=== PATIENT | male | born 1935 | race Caucasian/White ===

== ENCOUNTER 2018-01-25 23:32 | Inpatient (IN) | payer OTHER ==
[~2018-01-25] VITALS: Ht 172.7 cm; Wt 86.6 kg
[2018-01-26] VITALS (18 sets, daily range): BP systolic 114–156; BP diastolic 52–82
[2018-01-26] MEDS ORDERED: SODIUM CHLORIDE 0.9% 1,000 ML IV ONE ×2 (00:04→04:00)
[2018-01-26] MEDS ORDERED: PANTOPRAZOLE 40 MG/10 ML VIAL IV ONE ×2 (00:15→01:01)
[2018-01-26] MEDS ORDERED: ONDANSETRON HCL 4 MG/2 ML VIAL IV ONE (00:15)
[2018-01-26] MEDS ORDERED: NITROGLYCERIN 0.2MG/HR TOPICAL PATCH TD ONE (00:15)
[2018-01-26] MEDS ORDERED: PANTOPRAZOLE 80 MG in SODIUM CHL 0.9% 60 ML IV ONE (00:15)
[2018-01-26 00:53] LABS: Basophils # (auto) 0 uL; Basophils % (auto) 0.2 % (0.0-2.0); Hematocrit 16.4 % (41.0-53.0); Lymphocytes # (auto) 1.1 uL; Mean Corpuscular Hgb Conc. 32.7 g/dL (32.0-36.0); Monocytes # (auto) 0.6 uL; Red Blood Cells 1.68 10^6/uL (4.5-5.90); White Blood Cell 15.1 10^3/uL (4.4-10.8)
[2018-01-26 00:54] LABS: Eosinophils # (auto) 0 uL; Eosinophils % (auto) 0.3 % (0.0-7.0); Mean Corpuscular Hemoglobin 31.9 pg (28.0-32.0); Mean Corpuscular Volume 97.7 fL (80.0-100.0); Monocytes % (auto) 3.8 % (0.0-12.0); Neutrophils # (auto) 13.4 uL; Neutrophils % (auto) 88.7 % (37.0-80.0); Nucleated Red Blood Cells % 0.2 %; Platelet Count (auto) 260 10^3/uL (140-450); Red Cell Distribution Width 16.6 % (11.8-14.3)
[2018-01-26 00:57] LABS: Hemoglobin 5.4 g/dL (13.5-17.5)
[2018-01-26 01:12] LABS: Albumin 3.3 g/dL (3.4-5.0); Calcium 8.2 mg/dL (8.5-10.1); Magnesium 2.8 mg/dL (1.6-2.6); Potassium 4.1 mmol/L (3.5-5.1)
[2018-01-26 01:22] LABS: Bilirubin, Total 0.2 mg/dL (0.2-1.0); Total Protein 5.9 g/dL (6.4-8.2)
[2018-01-26 01:52] LABS: Prothrombin Time 10.9 sec (9.37-12.3)
[2018-01-26] MEDS ORDERED: NITROGLYCERIN 0.4 MG SL TAB SL ONE ×2 (03:15)
[2018-01-26] MEDS ORDERED: ONDANSETRON HCL 4 MG/2 ML VIAL IV PRN (06:00)
[2018-01-26] MEDS: ACCU-CHEK COMFORT CURVE STRIP VI SCH ×4 (06:00→23:45)
[2018-01-26] MEDS: InsuLIN REG 1unit/0.01ml Soln (100units/ml) SC SCH ×4 (06:00→23:44)
[2018-01-26] MEDS ORDERED: ACETAMINOPHEN 500 MG TAB PO PRN (06:00)
[2018-01-26] MEDS ORDERED: DEXTROSE (50%) 50ML SYRG IV PRN (06:00)
[2018-01-26] MEDS ORDERED: HYDROcodone-ACET 5/325MG TAB PO PRN (06:00)
[2018-01-26] MEDS ORDERED: PANTOPRAZOLE 80 MG in SODIUM CHL 0.9% 60 ML IV SCH (09:30)
[2018-01-26 11:43] LABS: Basophils # (auto) 0 uL; Basophils % (auto) 0.3 % (0.0-2.0); Eosinophils # (auto) 0.1 uL; Eosinophils % (auto) 0.6 % (0.0-7.0); Hematocrit 24.4 % (41.0-53.0); Hemoglobin 8.2 g/dL (13.5-17.5); Lymphocytes % (auto) 17.9 % (10.0-50.0); Mean Corpuscular Hemoglobin 30.6 pg (28.0-32.0); Mean Corpuscular Hgb Conc. 33.4 g/dL (32.0-36.0); Mean Corpuscular Volume 91.6 fL (80.0-100.0); Monocytes # (auto) 1.6 uL; Monocytes % (auto) 9.5 % (0.0-12.0); Neutrophils # (auto) 11.9 uL; Neutrophils % (auto) 71.7 % (37.0-80.0); Nucleated Red Blood Cells % 0.4 %; Platelet Count (auto) 237 10^3/uL (140-450); Red Blood Cells 2.67 10^6/uL (4.5-5.90); Red Cell Distribution Width 17.3 % (11.8-14.3); White Blood Cell 16.5 10^3/uL (4.4-10.8)
[2018-01-26 11:55] LABS: INR 1.05 (0.9-1.15); Prothrombin Time 11.4 sec (9.37-12.3)
[2018-01-26 12:03] LABS: Albumin 3.3 g/dL (3.4-5.0); BUN/Creatinine Ratio 46.2; Bilirubin, Total 0.4 mg/dL (0.2-1.0); Calcium 8.1 mg/dL (8.5-10.1); Potassium 3.9 mmol/L (3.5-5.1); Total Protein 6.2 g/dL (6.4-8.2)
[2018-01-26 14:00] LABS: % Iron Saturation 36.9 % (20-55)
[2018-01-26] MEDS: SUCRALFATE 1 GM/10 ML ORAL SUSP PO SCH ×2 (17:00→22:09)
[2018-01-26 17:59] LABS: Hemoglobin 7.5 g/dL (13.5-17.5)
[2018-01-26 18:00] LABS: Hematocrit 22.5 % (41.0-53.0)
[2018-01-26] MEDS ORDERED: FUROSEMIDE 40 MG/4 ML VIAL IV ONE (19:45)
[2018-01-26] MEDS: CARVEDILOL 3.125 MG TAB PO SCH (22:08)
[2018-01-26] MEDS: PANTOPRAZOLE 40 MG/10 ML VIAL IV SCH (22:10)
[2018-01-27] VITALS (18 sets, daily range): BP systolic 84–153; BP diastolic 33–101
[2018-01-27 00:55] LABS: Hematocrit 20.7 % (41.0-53.0)
[2018-01-27 01:01] LABS: Hemoglobin 6.9 g/dL (13.5-17.5)
[2018-01-27] MEDS: InsuLIN REG 1unit/0.01ml Soln (100units/ml) SC SCH ×3 (06:00→17:18)
[2018-01-27] MEDS: ACCU-CHEK COMFORT CURVE STRIP VI SCH ×3 (06:25→17:19)
[2018-01-27] MEDS: SUCRALFATE 1 GM/10 ML ORAL SUSP PO SCH ×5 (07:42→22:27)
[2018-01-27] MEDS ORDERED: LOSA100T27 PO (08:05)
[2018-01-27] MEDS ORDERED: GEMF600T PO (08:05)
[2018-01-27] MEDS ORDERED: ALLO300T2 PO (08:05)
[2018-01-27] MEDS ORDERED: TERA5CAP42 PO (08:05)
[2018-01-27] MEDS ORDERED: DUTA0.5C11 PO (08:05)
[2018-01-27] MEDS ORDERED: HCTZ25T GT (08:05)
[2018-01-27] MEDS ORDERED: OMEP20CA74 OR (08:05)
[2018-01-27] MEDS ORDERED: SITA50TA PO (08:05)
[2018-01-27] MEDS ORDERED: GLIP2.5T28 PO (08:05)
[2018-01-27] MEDS ORDERED: PNEUMOCOCCAL VACC POLYS 25 MCG/0.5 ML VIAL SUBCUT ONE (08:15)
[2018-01-27 08:40] LABS: Basophils # (auto) 0.1 uL; Basophils % (auto) 0.5 % (0.0-2.0); Eosinophils # (auto) 0.4 uL; Eosinophils % (auto) 3.1 % (0.0-7.0); Hematocrit 30.6 % (41.0-53.0); Hemoglobin 10.2 g/dL (13.5-17.5); Lymphocytes # (auto) 2.3 uL; Lymphocytes % (auto) 17.3 % (10.0-50.0); Mean Corpuscular Hemoglobin 29.9 pg (28.0-32.0); Mean Corpuscular Hgb Conc. 33.2 g/dL (32.0-36.0); Monocytes # (auto) 1.1 uL; Monocytes % (auto) 8.1 % (0.0-12.0); Neutrophils # (auto) 9.4 uL; Nucleated Red Blood Cells % 0.2 %; Platelet Count (auto) 216 10^3/uL (140-450); Red Cell Distribution Width 16.3 % (11.8-14.3); White Blood Cell 13.2 10^3/uL (4.4-10.8)
[2018-01-27 09:17] LABS: Albumin 3.2 g/dL (3.4-5.0); BUN/Creatinine Ratio 34.9; Bilirubin, Total 0.5 mg/dL (0.2-1.0); Calcium 8.1 mg/dL (8.5-10.1); Potassium 3.9 mmol/L (3.5-5.1)
[2018-01-27 09:49] LABS: Folate (Folic Acid) 22.71 ng/mL (5.38-24)
[2018-01-27] MEDS: LISINOPRIL 5 MG TAB PO SCH (10:42)
[2018-01-27] MEDS: PANTOPRAZOLE 40 MG/10 ML VIAL IV SCH ×2 (10:42→22:26)
[2018-01-27] MEDS: CARVEDILOL 3.125 MG TAB PO SCH ×2 (10:43→22:28)
[2018-01-27] MEDS: SOD CHL 0.45% 1,000 ML IV SCH (10:44)
[2018-01-28] VITALS: BP 107/50
[2018-01-28] MEDS: SOD CHL 0.45% 1,000 ML IV SCH ×2 (00:50→12:39)
[2018-01-28 04:00] VITALS: BP 90/40
[2018-01-28 05:41] LABS: Urine Bacteria FEW /hpf (None Seen); Urine Blood Negative /uL (Negative); Urine Specific Gravity 1.019 (1.001-1.035); Urine WBC <1 /hpf (0 - 3)
[2018-01-28 05:45] LABS: Basophils # (auto) 0 uL; Basophils % (auto) 0.4 % (0.0-2.0); Eosinophils # (auto) 0.4 uL; Eosinophils % (auto) 3.8 % (0.0-7.0); Hematocrit 26.9 % (41.0-53.0); Lymphocytes # (auto) 2.3 uL; Lymphocytes % (auto) 21.7 % (10.0-50.0); Mean Corpuscular Hemoglobin 31.2 pg (28.0-32.0); Mean Corpuscular Hgb Conc. 33.6 g/dL (32.0-36.0); Mean Corpuscular Volume 92.9 fL (80.0-100.0); Monocytes # (auto) 1.1 uL; Monocytes % (auto) 10.3 % (0.0-12.0); Neutrophils # (auto) 6.9 uL; Neutrophils % (auto) 63.8 % (37.0-80.0); Nucleated Red Blood Cells % 0.3 %; Platelet Count (auto) 211 10^3/uL (140-450); Red Cell Distribution Width 16.6 % (11.8-14.3); White Blood Cell 10.8 10^3/uL (4.4-10.8)
[2018-01-28 05:54] LABS: Partial Thromboplastin Time 24.2 sec (22.64-33.71); Prothrombin Time 10.9 sec (9.37-12.3)
[2018-01-28] MEDS: InsuLIN REG 1unit/0.01ml Soln (100units/ml) SC SCH ×5 (05:55→21:58)
[2018-01-28] MEDS: ACCU-CHEK COMFORT CURVE STRIP VI SCH ×5 (05:55→21:58)
[2018-01-28] MEDS: SUCRALFATE 1 GM/10 ML ORAL SUSP PO SCH ×4 (06:05→21:46)
[2018-01-28 06:14] LABS: Magnesium 2.4 mg/dL (1.6-2.6); Phosphorus 3.4 mg/dL (2.5-4.90); Uric Acid 8.9 mg/dL (3.5-7.2)
[2018-01-28 06:26] LABS: BUN/Creatinine Ratio 25.1; Bilirubin, Total 0.6 mg/dL (0.2-1.0); Potassium 3.9 mmol/L (3.5-5.1); Total Protein 5.9 g/dL (6.4-8.2)
[2018-01-28 08:00] VITALS: BP 111/60
[2018-01-28] MEDS: PANTOPRAZOLE 40 MG/10 ML VIAL IV SCH ×2 (10:31→21:47)
[2018-01-28] MEDS ORDERED: MIDAZOLAM HCL 1MG/1ML-2 ML VIAL ONE (10:42)
[2018-01-28] MEDS ORDERED: fentaNYL CITRATE 100 MCG/2 ML VL ONE (10:42)
[2018-01-28] MEDS ORDERED: MORPHINE SULFATE 4 MG/ML SYR/VIAL IV PRN (11:00)
[2018-01-28] MEDS ORDERED: NALOXONE HCL 0.4 MG/ML VIAL IV PRN (11:00)
[2018-01-28] MEDS ORDERED: ONDANSETRON HCL 4 MG/2 ML VIAL IV ONE (11:00)
[2018-01-28] MEDS ORDERED: ACCU-CHEK COMFORT CURVE STRIP VI ONE (11:00)
[2018-01-28 11:04] LABS: Protein, Urine 8.6 mg/dL (0.0-11.9)
[2018-01-28 11:40] VITALS: BP 111/55
[2018-01-28] MEDS: LISINOPRIL 5 MG TAB PO SCH (12:10)
[2018-01-28] MEDS: CARVEDILOL 3.125 MG TAB PO SCH ×2 (12:11→21:47)
[2018-01-28 15:50] VITALS: BP 117/57
[2018-01-28 19:51] VITALS: BP 122/55
[2018-01-29] VITALS (8 sets, daily range): BP systolic 102–170; BP diastolic 48–75
[2018-01-29] MEDS: SOD CHL 0.45% 1,000 ML IV SCH ×2 (04:00→15:35)
[2018-01-29 05:43] LABS: Albumin 2.8 g/dL (3.4-5.0); BUN/Creatinine Ratio 22.5; Potassium 4.5 mmol/L (3.5-5.1)
[2018-01-29 05:46] LABS: Bilirubin, Total 0.5 mg/dL (0.2-1.0); Total Protein 5.4 g/dL (6.4-8.2)
[2018-01-29] MEDS: InsuLIN REG 1unit/0.01ml Soln (100units/ml) SC SCH ×4 (06:00→23:55)
[2018-01-29] MEDS: ACCU-CHEK COMFORT CURVE STRIP VI SCH ×4 (06:27→23:55)
[2018-01-29] MEDS: SUCRALFATE 1 GM/10 ML ORAL SUSP PO SCH ×4 (06:28→23:49)
[2018-01-29] MEDS ORDERED: LACTULOSE 20Gm/30ML SOLN PO PRN (09:00)
[2018-01-29 09:30] LABS: Hematocrit 27.7 % (41.0-53.0); Hemoglobin 9.3 g/dL (13.5-17.5)
[2018-01-29] MEDS: PANTOPRAZOLE 40 MG/10 ML VIAL IV SCH ×2 (10:18→23:49)
[2018-01-29] MEDS: CARVEDILOL 3.125 MG TAB PO SCH ×2 (10:19→23:50)
[2018-01-29] MEDS: LISINOPRIL 5 MG TAB PO SCH (10:20)
[2018-01-30] VITALS (9 sets, daily range): BP systolic 102–135; BP diastolic 53–69
[2018-01-30] MEDS: SOD CHL 0.45% 1,000 ML IV SCH ×2 (01:26→22:32)
[2018-01-30 05:37] LABS: Basophils # (auto) 0 uL; Basophils % (auto) 0.3 % (0.0-2.0); Eosinophils # (auto) 0.4 uL; Eosinophils % (auto) 4.4 % (0.0-7.0); Hematocrit 25.5 % (41.0-53.0); Hemoglobin 8.6 g/dL (13.5-17.5); Lymphocytes # (auto) 1.4 uL; Lymphocytes % (auto) 15.1 % (10.0-50.0); Mean Corpuscular Hgb Conc. 33.6 g/dL (32.0-36.0); Mean Corpuscular Volume 92.3 fL (80.0-100.0); Monocytes % (auto) 10.8 % (0.0-12.0); Neutrophils # (auto) 6.6 uL; Neutrophils % (auto) 69.4 % (37.0-80.0); Platelet Count (auto) 230 10^3/uL (140-450); Red Blood Cells 2.76 10^6/uL (4.5-5.90); Red Cell Distribution Width 17.7 % (11.8-14.3); White Blood Cell 9.5 10^3/uL (4.4-10.8)
[2018-01-30] MEDS: ACCU-CHEK COMFORT CURVE STRIP VI SCH ×3 (06:00→17:39)
[2018-01-30] MEDS: InsuLIN REG 1unit/0.01ml Soln (100units/ml) SC SCH ×3 (06:00→17:40)
[2018-01-30 06:12] LABS: Albumin 2.7 g/dL (3.4-5.0); BUN/Creatinine Ratio 20.6; Bilirubin, Total 0.6 mg/dL (0.2-1.0); Magnesium 2.5 mg/dL (1.6-2.6); Potassium 4.1 mmol/L (3.5-5.1); Total Protein 5.8 g/dL (6.4-8.2)
[2018-01-30] MEDS: SUCRALFATE 1 GM/10 ML ORAL SUSP PO SCH ×4 (06:32→22:31)
[2018-01-30] MEDS: LISINOPRIL 5 MG TAB PO SCH (10:00)
[2018-01-30] MEDS: CARVEDILOL 3.125 MG TAB PO SCH ×2 (10:00→22:00)
[2018-01-30] MEDS: PANTOPRAZOLE 40 MG/10 ML VIAL IV SCH ×2 (10:17→22:30)
[2018-01-31 05:00] VITALS: BP 112/67
[2018-01-31] MEDS: InsuLIN REG 1unit/0.01ml Soln (100units/ml) SC SCH ×4 (06:00→17:50)
[2018-01-31] MEDS: ACCU-CHEK COMFORT CURVE STRIP VI SCH ×4 (06:00→17:50)
[2018-01-31] MEDS: SUCRALFATE 1 GM/10 ML ORAL SUSP PO SCH ×4 (06:37→21:50)
[2018-01-31 08:02] VITALS: BP 136/74
[2018-01-31] MEDS: PANTOPRAZOLE 40 MG/10 ML VIAL IV SCH ×2 (10:02→21:50)
[2018-01-31] MEDS: CARVEDILOL 3.125 MG TAB PO SCH ×2 (10:03→21:50)
[2018-01-31] MEDS: LISINOPRIL 5 MG TAB PO SCH (10:03)
[2018-01-31] MEDS: SOD CHL 0.45% 1,000 ML IV SCH ×2 (10:10→21:50)
[2018-01-31 11:39] LABS: Basophils # (auto) 0 uL; Basophils % (auto) 0.2 % (0.0-2.0); Eosinophils # (auto) 0.2 uL; Eosinophils % (auto) 2.5 % (0.0-7.0); Hematocrit 28.9 % (41.0-53.0); Hemoglobin 9.6 g/dL (13.5-17.5); Lymphocytes # (auto) 1.1 uL; Lymphocytes % (auto) 12.4 % (10.0-50.0); Mean Corpuscular Hemoglobin 30.2 pg (28.0-32.0); Mean Corpuscular Hgb Conc. 33.1 g/dL (32.0-36.0); Mean Corpuscular Volume 91.3 fL (80.0-100.0); Monocytes % (auto) 11.2 % (0.0-12.0); Neutrophils # (auto) 6.6 uL; Neutrophils % (auto) 73.7 % (37.0-80.0); Nucleated Red Blood Cells % 0.1 %; Platelet Count (auto) 255 10^3/uL (140-450); Red Blood Cells 3.17 10^6/uL (4.5-5.90); Red Cell Distribution Width 16.8 % (11.8-14.3); White Blood Cell 8.9 10^3/uL (4.4-10.8)
[2018-01-31 12:04] LABS: BUN/Creatinine Ratio 19.5; Calcium 8.7 mg/dL (8.5-10.1); Potassium 4.7 mmol/L (3.5-5.1)
[2018-01-31 13:00] VITALS: BP 116/58
[2018-01-31 17:03] VITALS: BP 119/57
[2018-01-31 21:51] VITALS: BP 97/48
[2018-02-01 04:43] VITALS: BP 124/61
[2018-02-01] MEDS: ACCU-CHEK COMFORT CURVE STRIP VI SCH ×4 (06:00→18:00)
[2018-02-01] MEDS: InsuLIN REG 1unit/0.01ml Soln (100units/ml) SC SCH ×4 (06:00→18:00)
[2018-02-01] MEDS: SUCRALFATE 1 GM/10 ML ORAL SUSP PO SCH ×4 (06:16→21:52)
[2018-02-01 08:30] VITALS: BP 132/61
[2018-02-01] MEDS: PANTOPRAZOLE 40 MG/10 ML VIAL IV SCH ×2 (10:11→21:53)
[2018-02-01] MEDS: CARVEDILOL 3.125 MG TAB PO SCH ×2 (10:11→21:53)
[2018-02-01] MEDS: LISINOPRIL 5 MG TAB PO SCH (10:12)
[2018-02-01 12:30] VITALS: BP 133/78
[2018-02-01 17:04] VITALS: BP 134/69
[2018-02-01] MEDS: SOD CHL 0.45% 1,000 ML IV SCH ×2 (17:11→23:46)
[2018-02-01 22:00] VITALS: BP 137/73
[2018-02-02 04:58] VITALS: BP 128/73
[2018-02-02 05:25] LABS: Basophils # (auto) 0 uL; Basophils % (auto) 0.5 % (0.0-2.0); Eosinophils # (auto) 0.4 uL; Eosinophils % (auto) 4.7 % (0.0-7.0); Hematocrit 28.8 % (41.0-53.0); Hemoglobin 9.6 g/dL (13.5-17.5); Lymphocytes # (auto) 1.2 uL; Lymphocytes % (auto) 12.9 % (10.0-50.0); Mean Corpuscular Hgb Conc. 33.2 g/dL (32.0-36.0); Mean Corpuscular Volume 90.5 fL (80.0-100.0); Monocytes # (auto) 1.1 uL; Monocytes % (auto) 12.4 % (0.0-12.0); Neutrophils # (auto) 6.4 uL; Neutrophils % (auto) 69.5 % (37.0-80.0); Platelet Count (auto) 315 10^3/uL (140-450); Red Blood Cells 3.18 10^6/uL (4.5-5.90); Red Cell Distribution Width 16.2 % (11.8-14.3); White Blood Cell 9.2 10^3/uL (4.4-10.8)
[2018-02-02] MEDS: ACCU-CHEK COMFORT CURVE STRIP VI SCH ×4 (05:39→17:17)
[2018-02-02] MEDS: InsuLIN REG 1unit/0.01ml Soln (100units/ml) SC SCH ×3 (05:39→12:00)
[2018-02-02] MEDS: SUCRALFATE 1 GM/10 ML ORAL SUSP PO SCH ×4 (06:30→22:37)
[2018-02-02 08:40] VITALS: BP 135/54
[2018-02-02] MEDS: CARVEDILOL 3.125 MG TAB PO SCH ×2 (09:34→22:38)
[2018-02-02] MEDS: PANTOPRAZOLE 40 MG/10 ML VIAL IV SCH ×2 (09:35→22:37)
[2018-02-02] MEDS: LISINOPRIL 5 MG TAB PO SCH (09:37)
[2018-02-02 13:00] VITALS: BP 124/85
[2018-02-02] MEDS: SOD CHL 0.45% 1,000 ML IV SCH (16:09)
[2018-02-02 17:00] VITALS: BP 135/64
[2018-02-02 21:59] VITALS: BP 147/71
[2018-02-03] MEDS: InsuLIN REG 1unit/0.01ml Soln (100units/ml) SC SCH
[2018-02-03] MEDS: ACCU-CHEK COMFORT CURVE STRIP VI SCH (00:14)
[2018-02-19] MEDS ORDERED: ASPI81TA27 PO (16:45)
[2018-02-19] MEDS ORDERED: OMEP20TA PO (16:45)
[2018-02-19] MEDS ORDERED: LOSA50TA6 PO (16:45)
[2018-02-22] MEDS ORDERED: CLOP75TA28 PO (10:31)
== END 2018-02-03 01:40 | disposition short-term general hospital (02) | DRG 377 ==
LOC: ER 23:32 → EDBD 23:32 → EDUNIT# 23:32 → TELE 23:33 → DOU IN ICU 01-26 19:50 → CENTRAL 01-29 18:38 → TELE-CENTR 02-02 19:46
PROVIDERS: ADMIT Nurse Practitioner Family; ATTEND Internal Medicine
PROC: 30233N1 Transfusion of Nonautologous Red Blood Cells into Peripheral Vein, Percutaneous Approach (ICD-10-PCS; 2018-01-26)
PROC: 0DJ08ZZ Inspection of Upper Intestinal Tract, Via Natural or Artificial Opening Endoscopic (ICD-10-PCS; principal; 2018-01-28 10:40)
DX: K29.71 Gastritis, unspecified, with bleeding (principal); N17.0 Acute kidney failure with tubular necrosis; I21.A1 Myocardial infarction type 2; E11.22 Type 2 diabetes mellitus with diabetic chronic kidney disease; D62 Acute posthemorrhagic anemia; K29.81 Duodenitis with bleeding; I35.0 Nonrheumatic aortic (valve) stenosis; K59.00 Constipation, unspecified; K21.9 Gastro-esophageal reflux disease without esophagitis; N18.3 Chronic kidney disease, stage 3 (moderate); N40.0 Benign prostatic hyperplasia without lower urinary tract symptoms; E78.1 Pure hyperglyceridemia; E78.5 Hyperlipidemia, unspecified; I12.9 Hypertensive chronic kidney disease with stage 1 through stage 4 chronic kidney disease, or unspecified chronic kidney disease; Z79.899 Other long term (current) drug therapy; Z82.49 Family history of ischemic heart disease and other diseases of the circulatory system; Z83.3 Family history of diabetes mellitus; Z86.73 Personal history of transient ischemic attack (TIA), and cerebral infarction without residual deficits; Z87.11 Personal history of peptic ulcer disease; Z87.891 Personal history of nicotine dependence; Z79.84 Long term (current) use of oral hypoglycemic drugs; Z71.89 Other specified counseling
CPT/HCPCS: 36415; 36430; 71045; 76775; 80048; 80053; 81001; 82270; 82306; 82570; 82607; 82746; 82962; 83036; 83540; 83550; 83605; 83735; 83880; 83970; 84100; 84156; 84300; 84443; 84484; 84550; 85014; 85018; 85025; 85610; 85730; 86850; 86900; 86901; 86920; 87081; 93005; 93017; 93306; 96361; 96365; 96375; 99291; 99292; C9113; J1815; J2250; J2405

== ENCOUNTER 2018-02-05 23:19 | Inpatient (IN) | payer OTHER ==
[~2018-02-05] VITALS: Ht 172.7 cm; Wt 84.3 kg
[~2018-02-05 23:19] MED LIST: ALLO300T2 PO; DUTA0.5C11 PO; GEMF600T PO; GLIP2.5T28 PO; LOSA100T27 PO; SITA50TA PO; TERA5CAP42 PO
[2018-02-06] VITALS: BP 126/68
[2018-02-06] MEDS ORDERED: ONDANSETRON HCL 4 MG/2 ML VIAL IV PRN (00:15)
[2018-02-06] MEDS ORDERED: NITROGLYCERIN 0.4 MG SL TAB SL PRN (00:15)
[2018-02-06] MEDS ORDERED: MORPHINE SULFATE 4 MG/ML SYR/VIAL IV PRN ×2 (00:15)
[2018-02-06] MEDS: SODIUM CHLORIDE 0.9% 1,000 ML IV SCH ×2 (04:48→12:04)
[2018-02-06 05:01] VITALS: BP 119/59
[2018-02-06] MEDS: ACCU-CHEK COMFORT CURVE STRIP VI SCH ×2 (06:11→11:30)
[2018-02-06] MEDS: InsuLIN REG 1unit/0.01ml Soln (100units/ml) SC SCH ×2 (06:12→11:30)
[2018-02-06 07:04] LABS: Basophils # (auto) 0.1 uL; Basophils % (auto) 0.9 % (0.0-2.0); Eosinophils # (auto) 0.3 uL; Eosinophils % (auto) 4.5 % (0.0-7.0); Hematocrit 28.6 % (41.0-53.0); Hemoglobin 9.5 g/dL (13.5-17.5); Lymphocytes # (auto) 1.3 uL; Mean Corpuscular Hemoglobin 29.3 pg (28.0-32.0); Mean Corpuscular Hgb Conc. 33.1 g/dL (32.0-36.0); Mean Corpuscular Volume 88.8 fL (80.0-100.0); Monocytes # (auto) 0.8 uL; Monocytes % (auto) 12.1 % (0.0-12.0); Neutrophils # (auto) 4.3 uL; Neutrophils % (auto) 63.5 % (37.0-80.0); Nucleated Red Blood Cells % 0.1 %; Platelet Count (auto) 368 10^3/uL (140-450); Red Blood Cells 3.23 10^6/uL (4.5-5.90); Red Cell Distribution Width 16.7 % (11.8-14.3); White Blood Cell 6.8 10^3/uL (4.4-10.8)
[2018-02-06 07:24] LABS: Calcium 8.5 mg/dL (8.5-10.1)
[2018-02-06 07:28] LABS: BUN/Creatinine Ratio 20.6
[2018-02-06 07:32] VITALS: BP 133/55
[2018-02-06] MEDS: HYDROcodone-ACET 10/325MG TAB PO PRN ×3 (08:05→15:20)
[2018-02-06] MEDS ORDERED: ALLOPURINOL 300 MG TAB PO SCH (10:00)
[2018-02-06] MEDS ORDERED: ASPirin-EC 81 mg tab PO SCH (10:00)
[2018-02-06] MEDS ORDERED: CARVEDILOL 3.125 MG TAB PO SCH (10:00)
[2018-02-06] MEDS ORDERED: PANTOPRAZOLE 40 MG TAB PO SCH (10:00)
[2018-02-06 11:00] VITALS: BP 122/81
[2018-02-06] MEDS ORDERED: SUCR1TAB38 PO (15:03)
[2018-02-06] MEDS ORDERED: PANT40TA2 PO (15:03)
[2018-02-06] MEDS ORDERED: FERR-7 PO (15:05)
[2018-02-06] MEDS ORDERED: ATOR20TA50 PO (15:05)
[2018-02-06] MEDS ORDERED: TERAZOSIN HCL 5 MG CAP PO SCH (22:00)
[2018-02-06] MEDS ORDERED: ATORVASTATIN 20 MG TAB PO SCH (22:00)
[2018-02-19] MEDS ORDERED: LOSA50TA6 PO (16:45)
[2018-02-19] MEDS ORDERED: OMEP20TA PO (16:45)
[2018-02-19] MEDS ORDERED: ASPI81TA27 PO (16:45)
[2018-02-22] MEDS ORDERED: CLOP75TA28 PO (10:31)
== END 2018-02-06 16:30 | disposition home or self-care (01) | DRG 377 ==
LOC: EAST 23:19 → TELE-EAST 02-06 05:53
PROVIDERS: ADMIT Internal Medicine; ATTEND Internal Medicine
DX: K29.01 Acute gastritis with bleeding (principal); I21.4 Non-ST elevation (NSTEMI) myocardial infarction; E11.22 Type 2 diabetes mellitus with diabetic chronic kidney disease; D62 Acute posthemorrhagic anemia; I25.10 Atherosclerotic heart disease of native coronary artery without angina pectoris; I35.0 Nonrheumatic aortic (valve) stenosis; E78.5 Hyperlipidemia, unspecified; K29.81 Duodenitis with bleeding; I12.9 Hypertensive chronic kidney disease with stage 1 through stage 4 chronic kidney disease, or unspecified chronic kidney disease; N18.9 Chronic kidney disease, unspecified; Z82.49 Family history of ischemic heart disease and other diseases of the circulatory system; I25.2 Old myocardial infarction
CPT/HCPCS: 36415; 80048; 82962; 83036; 85025; 87081

== ENCOUNTER 2019-01-27 10:25 | Inpatient (IN) | payer OTHER | END 2019-01-30 23:00 | LOC: ER 10:25 → TELE 18:10 → TELE-WESTW 20:21 | PROC: B246ZZ4 Ultrasonography of Right and Left Heart, Transesophageal (ICD-10-PCS; principal; ~2019-01-27) | DX: A41.9 Sepsis, unspecified organism (principal); E43 Unspecified severe protein-calorie malnutrition; I13.0 Hypertensive heart and chronic kidney disease with heart failure and stage 1 through stage 4 chronic kidney disease, or unspecified chronic kidney disease; D64.9 Anemia, unspecified; M51.36 Other intervertebral disc degeneration, lumbar region; E78.5 Hyperlipidemia, unspecified; M10.9 Gout, unspecified; E11.22 Type 2 diabetes mellitus with diabetic chronic kidney disease; N18.3 Chronic kidney disease, stage 3 (moderate); I50.9 Heart failure, unspecified ==

== ENCOUNTER 2019-02-01 10:50 | Emergency (ER) | payer OTHER ==
[~2019-02-01] VITALS: Ht 172.7 cm; Wt 79.4 kg
[~2019-02-01 10:50] MED LIST changes: +ATOR20TA50 PO; +FERR-7 PO; -GEMF600T PO; -LOSA100T27 PO; +METO25TA5 PO; +PANT40TA2 PO
[2019-02-01 13:58] LABS: INR 1.05 (0.9-1.15); Partial Thromboplastin Time 28.2 sec (23.78-33.04); Prothrombin Time 11.2 sec (9.27-12.13)
[2019-02-01 14:01] LABS: Basophils # (auto) 0 uL; Basophils % (auto) 0.5 % (0.0-2.0); Eosinophils # (auto) 0.3 uL; Hematocrit 28.2 % (41.0-53.0); Hemoglobin 8.7 g/dL (13.5-17.5); Lymphocytes # (auto) 1.8 uL; Lymphocytes % (auto) 18.9 % (10.0-50.0); Mean Corpuscular Hemoglobin 23.9 pg (28.0-32.0); Mean Corpuscular Hgb Conc. 30.9 g/dL (32.0-36.0); Mean Corpuscular Volume 77.2 fL (80.0-100.0); Monocytes # (auto) 0.6 uL; Monocytes % (auto) 6.4 % (0.0-12.0); Neutrophils # (auto) 6.7 uL; Neutrophils % (auto) 71.2 % (37.0-80.0); Nucleated Red Blood Cells % 0.1 %; Platelet Count (auto) 414 10^3/uL (140-450); Red Blood Cells 3.66 10^6/uL (4.5-5.90); Red Cell Distribution Width 19.8 % (11.8-14.3); White Blood Cell 9.4 10^3/uL (4.4-10.8)
[2019-02-01] MEDS: HYDROcodone-ACET 5/325MG TAB PO ONE (14:11)
[2019-02-01 14:20] LABS: BUN/Creatinine Ratio 10.1; Calcium 9.1 mg/dL (8.5-10.1)
--- NOTE | 2019-02-01 15:05 | NUR ---
PICC line placement Patient/Patient significant other educated on need for PICC line placement. All risks and benefits explained and all questions and concerns addressed prior to procedure. Noted past medical history and allergies with no contraindications. INR and Plt counts within acceptable range. 4 fr PICC line inserted VIA RIGHT BASILIC vein using [employer] US and Tip Location System. Sterile technique with maximum barrier precautions utilized. Blood return obtained from THE SINGLE LUMEN AND flushed easily with NS using proper technique. PICC secured with Stat-lock; biodisc and occlusive dressing applied. Stat portable chest x-ray obtained for PICC tip placement. *Baseline Arm Circumference 25CM. PICC lot #[id number]. INTERNAL LENGTH 45CM EXTERNAL LENGTH 0CM
[2019-02-01] MEDS: LIDOCAINE 1% (LOCAL ANESTH.) PF 5ml SDV ID ONE (15:20)
[2019-02-01 16:22] VITALS: BP 145/84
[2019-02-01] MEDS ORDERED: SODIUM CHLOR 0.9% PF (SALINE LOCK) 10ML VIAL/SYR IV SCH (22:00)
== END 2019-02-01 18:53 ==
LOC: EDBD 10:50 → ER 10:50
DX: Z45.2 Encounter for adjustment and management of vascular access device (principal); E11.9 Type 2 diabetes mellitus without complications; E78.5 Hyperlipidemia, unspecified; I10 Essential (primary) hypertension; I25.2 Old myocardial infarction; Z79.899 Other long term (current) drug therapy; Z86.73 Personal history of transient ischemic attack (TIA), and cerebral infarction without residual deficits; Z79.84 Long term (current) use of oral hypoglycemic drugs
CPT/HCPCS: 36415; 36569; 71045; 80048; 85025; 85610; 85730; 99284; C1751; J7050

== ENCOUNTER 2020-07-29 13:29 | Emergency (ER) | payer OTHER ==
[~2020-07-29] VITALS: Ht 172.7 cm; Wt 87.5 kg
[2020-07-29] MEDS ORDERED: SODIUM CHLORIDE 0.9% 1,000 ML IV ONE (13:34)
[2020-07-29 14:12] LABS: Basophils # (auto) 0 10 ^3/uL (0-0.2); Basophils % (auto) 0.6 % (0.0-2.0); Eosinophils # (auto) 0.3 10 ^3/uL (0-0.8); Eosinophils % (auto) 3.3 % (0.0-7.0); Hematocrit 41.1 % (41.0-53.0); Hemoglobin 13.6 g/dL (13.5-17.5); Lymphocytes # (auto) 1.1 10 ^3/uL (0.4-5.4); Lymphocytes % (auto) 14.2 % (10.0-50.0); Mean Corpuscular Hemoglobin 30.7 pg (28.0-32.0); Mean Corpuscular Hgb Conc. 33.1 g/dL (32.0-36.0); Mean Corpuscular Volume 92.7 fL (80.0-100.0); Monocytes # (auto) 0.7 10 ^3/uL (0-1.3); Monocytes % (auto) 8.2 % (0.0-12.0); Neutrophils # (auto) 5.9 10 ^3/uL (1.6-8.6); Neutrophils % (auto) 73.7 % (37.0-80.0); Platelet Count (auto) 174 10^3/uL (140-450); Red Blood Cells 4.43 10^6/uL (4.5-5.90); Red Cell Distribution Width 16.1 % (11.8-14.3)
[2020-07-29 14:33] LABS: Albumin 3.8 g/dL (3.4-5.0); Anion Gap 6 (5-15); Blood Urea Nitrogen 27 mg/dL (7-18); Calcium 8.5 mg/dL (8.5-10.1); Carbon Dioxide 26 mmol/L (21-32); Chloride 106 mmol/L (98-107); Glucose 154 mg/dL (74-106); Potassium 3.8 mmol/L (3.5-5.1); Sodium 138 mmol/L (136-145)
[2020-07-29 14:39] LABS: Alanine Aminotransferase 42 U/L (16-61); Alkaline Phosphatase 99 U/L (45-117); Aspartate Aminotransferase 47 U/L (15-37); Bilirubin, Total 0.5 mg/dL (0.2-1.0); GFR African American 50 mL/min; GFR Non-African American 41 mL/min; Total Protein 7.1 g/dL (6.4-8.2)
[2020-07-29 16:04] LABS: Urine Bacteria NONE SEEN /hpf (None Seen); Urine Blood Negative /uL (Negative); Urine Specific Gravity 1.009 (1.001-1.035); Urine WBC <1 /hpf (0 - 3)
[2020-07-29 18:00] VITALS: BP 137/70
== END 2020-07-29 19:13 | disposition home or self-care (01) ==
LOC: EDBD 13:29 → ER 13:29
DX: K29.70 Gastritis, unspecified, without bleeding (principal); K83.8 Other specified diseases of biliary tract; E11.65 Type 2 diabetes mellitus with hyperglycemia; E78.5 Hyperlipidemia, unspecified; I10 Essential (primary) hypertension; I25.2 Old myocardial infarction
CPT/HCPCS: 36415; 71045; 74176; 80053; 81001; 84484; 85025; 93005; 96360; 96361; 99285; J7030

== ENCOUNTER 2020-09-06 08:29 | Inpatient (IN) | payer OTHER ==
[~2020-09-06] VITALS: Ht 172.7 cm; Wt 88.0 kg
[2020-09-06] MEDS ORDERED: ASPirin 81 mg TAB PO ONE (09:00)
[2020-09-06 09:32] LABS: Basophils # (auto) 0 10 ^3/uL (0-0.2); Basophils % (auto) 0.2 % (0.0-2.0); Eosinophils # (auto) 0 10 ^3/uL (0-0.8); Eosinophils % (auto) 0.2 % (0.0-7.0); Hematocrit 36.2 % (41.0-53.0); Hemoglobin 11.7 g/dL (13.5-17.5); Lymphocytes # (auto) 0.5 10 ^3/uL (0.4-5.4); Lymphocytes % (auto) 6.6 % (10.0-50.0); Mean Corpuscular Hemoglobin 30.9 pg (28.0-32.0); Mean Corpuscular Hgb Conc. 32.5 g/dL (32.0-36.0); Mean Corpuscular Volume 95.2 fL (80.0-100.0); Monocytes # (auto) 0.7 10 ^3/uL (0-1.3); Monocytes % (auto) 9.2 % (0.0-12.0); Neutrophils % (auto) 83.8 % (37.0-80.0); Nucleated Red Blood Cells % 0.1 %; Platelet Count (auto) 175 10^3/uL (140-450); Red Cell Distribution Width 17.1 % (11.8-14.3); White Blood Cell 7.1 10^3/uL (4.4-10.8)
[2020-09-06 09:52] LABS: Albumin 3.6 g/dL (3.4-5.0); BUN/Creatinine Ratio 13.9; Calcium 9.1 mg/dL (8.5-10.1)
[2020-09-06 10:01] LABS: Bilirubin, Total 1.7 mg/dL (0.2-1.0); Total Protein 6.8 g/dL (6.4-8.2)
[2020-09-06 10:04] LABS: Potassium 6.1 mmol/L (3.5-5.1)
[2020-09-06] MEDS ORDERED: SODIUM ZIRCONIUM CYCL 10 GM PAK PO ONE (10:30)
[2020-09-06] MEDS ORDERED: ENOXAPARIN SOD 80 MG/0.8ML SYRINGE SC ONE (10:30)
[2020-09-06] MEDS ORDERED: InsuLIN REG 1unit/0.01ml Soln (100units/ml) IV ONE (10:30)
[2020-09-06] MEDS ORDERED: SODIUM BICARBONATE 8.4% INJ 50ML SYRINGE IV ONE (10:30)
[2020-09-06] MEDS ORDERED: CALCIUM GLUC 4.65meq/50ml D5AE 50 ML IV ONE (10:30)
[2020-09-06] MEDS ORDERED: DEXTROSE (50%) 50ML SYRG IV ONE ×2 (10:30→11:45)
[2020-09-06] MEDS ORDERED: ALBUTEROL SULF 2.5 MG/0.5ML(0.5%) NEB SOLN NEB ONE (10:30)
[2020-09-06] MEDS ORDERED: FUROSEMIDE 40 MG/4 ML VIAL IV ONE (11:00)
[2020-09-06] MEDS ORDERED: SODIUM BICARBONATE 50ML VIAL 50 ML in SOD CHL 0.45% 1,000 ML IV ONE ×2 (11:15→12:15)
[2020-09-06] MEDS ORDERED: MORPHINE SULFATE 4 MG/ML SYR/VIAL IV PRN (11:45)
[2020-09-06] MEDS ORDERED: ONDANSETRON HCL 4 MG/2 ML VIAL IV PRN (11:45)
[2020-09-06] MEDS: InsuLIN REG 1unit/0.01ml Soln (100units/ml) SC SCH ×3 (11:48→22:11)
[2020-09-06] MEDS ORDERED: SODIUM PHOSPHATES 40 MEQ in D5W 5% 250 ML IV ONE (12:15)
[2020-09-06] MEDS: ACCU-CHEK COMFORT CURVE STRIP VI SCH ×3 (13:30→22:10)
[2020-09-06] MEDS: CLOPIDOGREL BISULFATE 75 MG TAB PO SCH ×2 (13:45→18:44)
[2020-09-06] MEDS ORDERED: PANT40T PO (14:37)
[2020-09-06] MEDS ORDERED: FERR-7 PO (14:37)
[2020-09-06] MEDS ORDERED: SITA100T7 PO (14:37)
[2020-09-06] MEDS ORDERED: ASPI-498 PO (14:38)
[2020-09-06] MEDS ORDERED: FURO20TA3 PO (14:38)
[2020-09-06] MEDS ORDERED: POTA-180 PO (14:42)
[2020-09-06 15:46] LABS: Albumin 3.6 g/dL (3.4-5.0); Calcium 8.8 mg/dL (8.5-10.1); Potassium 4.9 mmol/L (3.5-5.1)
[2020-09-06 15:47] LABS: Urine Bacteria NONE SEEN /hpf (None Seen); Urine Blood Negative /uL (Negative); Urine Hyaline Cast MANY /lpf (0 - 2); Urine Mucus FEW (None Seen); Urine Specific Gravity 1.016 (1.001-1.035); Urine WBC 1 /hpf (0 - 3)
[2020-09-06 15:56] LABS: BUN/Creatinine Ratio 15.3; Bilirubin, Total 0.9 mg/dL (0.2-1.0); Total Protein 6.6 g/dL (6.4-8.2)
[2020-09-06 16:02] LABS: Protein, Urine 18.4 mg/dL (0.0-11.9)
[2020-09-06 16:10] VITALS: BP 100/50
[2020-09-06] MEDS: METOPROLOL TARTRATE 25 MG TAB PO SCH (18:00)
[2020-09-06] MEDS ORDERED: ATORVASTATIN 20 MG TAB PO SCH (18:00)
[2020-09-06 20:00] VITALS: BP 100/49
[2020-09-06 21:48] VITALS: BP 100/49
[2020-09-06] MEDS: PANTOPRAZOLE 40 MG TAB PO SCH (22:10)
[2020-09-06] MEDS: TERAZOSIN HCL 5 MG CAP PO SCH (23:19)
[2020-09-07] MEDS: traMADol HCL 50 MG TAB PO PRN (01:31)
[2020-09-07 05:00] VITALS: BP 138/76
[2020-09-07 06:12] LABS: Basophils # (auto) 0 10 ^3/uL (0-0.2); Basophils % (auto) 0.2 % (0.0-2.0); Eosinophils # (auto) 0 10 ^3/uL (0-0.8); Eosinophils % (auto) 0.2 % (0.0-7.0); Hematocrit 34.5 % (41.0-53.0); Hemoglobin 11.2 g/dL (13.5-17.5); Lymphocytes # (auto) 0.7 10 ^3/uL (0.4-5.4); Mean Corpuscular Hemoglobin 31.6 pg (28.0-32.0); Mean Corpuscular Hgb Conc. 32.5 g/dL (32.0-36.0); Monocytes # (auto) 0.7 10 ^3/uL (0-1.3); Neutrophils % (auto) 85.6 % (37.0-80.0); Nucleated Red Blood Cells % 0.1 %; Platelet Count (auto) 155 10^3/uL (140-450); Red Blood Cells 3.56 10^6/uL (4.5-5.90); Red Cell Distribution Width 17.5 % (11.8-14.3); White Blood Cell 9.4 10^3/uL (4.4-10.8)
[2020-09-07 06:27] LABS: Calcium 8.4 mg/dL (8.5-10.1); Potassium 4.7 mmol/L (3.5-5.1)
[2020-09-07 06:38] LABS: Albumin 3.5 g/dL (3.4-5.0); Bilirubin, Total 1.2 mg/dL (0.2-1.0); Total Protein 6.4 g/dL (6.4-8.2)
[2020-09-07] MEDS: ACCU-CHEK COMFORT CURVE STRIP VI SCH ×4 (06:43→21:39)
[2020-09-07] MEDS: InsuLIN REG 1unit/0.01ml Soln (100units/ml) SC SCH ×4 (06:44→21:39)
[2020-09-07 08:00] VITALS: BP 112/45
[2020-09-07] MEDS ORDERED: TERAZOSIN HCL 5 MG CAP PO SCH (10:00)
[2020-09-07] MEDS ORDERED: ALLOPURINOL 100 MG TAB PO SCH (10:00)
[2020-09-07] MEDS ORDERED: ENOXAPARIN SOD 80 MG/0.8ML SYRINGE SC SCH (10:00)
[2020-09-07 10:07] LABS: Phosphorus 6.7 mg/dL (2.5-4.90)
[2020-09-07] MEDS: PANTOPRAZOLE 40 MG TAB PO SCH ×2 (10:19→21:38)
[2020-09-07] MEDS: FUROSEMIDE 100 MG/10ML VIAL IV SCH (10:19)
[2020-09-07] MEDS: SODIUM BICARBONATE 50ML VIAL 50 ML in D5W/SOD CHL 0.45% 1,000 ML IV SCH ×2 (10:57→21:52)
[2020-09-07 13:00] VITALS: BP 104/55
[2020-09-07 17:15] VITALS: BP 99/57
[2020-09-07] MEDS: METOPROLOL TARTRATE 25 MG TAB PO SCH (18:36)
[2020-09-07] MEDS: TERAZOSIN HCL 5 MG CAP PO SCH (21:38)
[2020-09-07 22:00] VITALS: BP 107/49
[2020-09-08] MEDS: traMADol HCL 50 MG TAB PO PRN (00:49)
[2020-09-08 05:00] VITALS: BP 92/52
[2020-09-08 06:36] LABS: Potassium 4.6 mmol/L (3.5-5.1)
[2020-09-08 06:46] LABS: Albumin 3.3 g/dL (3.4-5.0); BUN/Creatinine Ratio 19.2; Bilirubin, Total 1.3 mg/dL (0.2-1.0); Calcium 8.1 mg/dL (8.5-10.1); Total Protein 5.8 g/dL (6.4-8.2)
[2020-09-08] MEDS: InsuLIN REG 1unit/0.01ml Soln (100units/ml) SC SCH ×2 (06:46→11:30)
[2020-09-08] MEDS: ACCU-CHEK COMFORT CURVE STRIP VI SCH ×2 (06:46→12:11)
[2020-09-08] MEDS: CLOPIDOGREL BISULFATE 75 MG TAB PO SCH (09:48)
[2020-09-08] MEDS: PANTOPRAZOLE 40 MG TAB PO SCH (09:48)
[2020-09-08] MEDS: SODIUM BICARBONATE 50ML VIAL 50 ML in D5W/SOD CHL 0.45% 1,000 ML IV SCH (09:52)
[2020-09-08] MEDS ORDERED: ASPirin-EC 81 mg tab PO SCH (10:00)
[2020-09-08] MEDS ORDERED: ALLOPURINOL 100 MG TAB PO SCH (10:00)
[2020-09-08] MEDS: FUROSEMIDE 100 MG/10ML VIAL IV SCH (10:44)
[2020-09-08 11:32] LABS: Hepatitis A Ab IgM Negative; Hepatitis B Core IgM Negative; Hepatitis B Surface Antigen Negative (Negative); Hepatitis C Antibody Negative (Negative)
[2020-09-08] MEDS ORDERED: CLOP75TA41 PO (15:13)
[2020-09-08] MEDS ORDERED: FURO40TA4 PO (15:13)
== END 2020-09-08 17:17 | disposition home or self-care (01) | DRG 280 ==
LOC: ER 08:29 → EDUNIT# 08:29 → EDBD 08:29 → TELE 08:30 → TELE-WESTW 15:30
PROVIDERS: ADMIT Hospitalist; ATTEND Hospitalist
DX: I21.4 Non-ST elevation (NSTEMI) myocardial infarction (principal); N17.0 Acute kidney failure with tubular necrosis; I13.0 Hypertensive heart and chronic kidney disease with heart failure and stage 1 through stage 4 chronic kidney disease, or unspecified chronic kidney disease; E87.2 Acidosis; N18.4 Chronic kidney disease, stage 4 (severe); E11.22 Type 2 diabetes mellitus with diabetic chronic kidney disease; I50.9 Heart failure, unspecified; E87.5 Hyperkalemia; K76.0 Fatty (change of) liver, not elsewhere classified; E11.40 Type 2 diabetes mellitus with diabetic neuropathy, unspecified; E83.39 Other disorders of phosphorus metabolism; N40.0 Benign prostatic hyperplasia without lower urinary tract symptoms; I25.10 Atherosclerotic heart disease of native coronary artery without angina pectoris; E11.21 Type 2 diabetes mellitus with diabetic nephropathy; E11.65 Type 2 diabetes mellitus with hyperglycemia; Z83.3 Family history of diabetes mellitus; Z82.49 Family history of ischemic heart disease and other diseases of the circulatory system; Z79.84 Long term (current) use of oral hypoglycemic drugs; Z86.73 Personal history of transient ischemic attack (TIA), and cerebral infarction without residual deficits
CPT/HCPCS: 36415; 71045; 74176; 76705; 76775; 80053; 80074; 81001; 82306; 82550; 82570; 82962; 83036; 83880; 83970; 84100; 84156; 84484; 85025; 93306; 94640; 96361; 96365; 96367; 96375; 99291; G0378; J0610; J1815; J7060

== ENCOUNTER 2020-09-10 22:36 | Inpatient (IN) | payer OTHER ==
[~2020-09-10] VITALS: Ht 172.7 cm; Wt 90.5 kg
[~2020-09-10 22:36] MED LIST changes: +ASPI-498 PO; -ATOR20TA50 PO; +CLOP75TA41 PO; +FURO40TA4 PO; -GLIP2.5T28 PO; +PANT40T PO; -PANT40TA2 PO; +POTA-180 PO; +SITA100T7 PO; -SITA50TA PO
[2020-09-10] MEDS ORDERED: SODIUM CHLORIDE 0.9% 500 ML IV ONE (23:15)
[2020-09-10 23:22] LABS: Basophils # (auto) 0 10 ^3/uL (0-0.2); Basophils % (auto) 0.1 % (0.0-2.0); Eosinophils # (auto) 0 10 ^3/uL (0-0.8); Hematocrit 36.9 % (41.0-53.0); Hemoglobin 11.8 g/dL (13.5-17.5); Lymphocytes # (auto) 0.4 10 ^3/uL (0.4-5.4); Lymphocytes % (auto) 3.8 % (10.0-50.0); Mean Corpuscular Hemoglobin 31.4 pg (28.0-32.0); Mean Corpuscular Hgb Conc. 32.1 g/dL (32.0-36.0); Mean Corpuscular Volume 97.8 fL (80.0-100.0); Monocytes # (auto) 1.1 10 ^3/uL (0-1.3); Neutrophils # (auto) 8.8 10 ^3/uL (1.6-8.6); Neutrophils % (auto) 85.1 % (37.0-80.0); Nucleated Red Blood Cells % 1.2 %; Platelet Count (auto) 140 10^3/uL (140-450); Red Blood Cells 3.77 10^6/uL (4.5-5.90); Red Cell Distribution Width 17.9 % (11.8-14.3); White Blood Cell 10.3 10^3/uL (4.4-10.8)
[2020-09-10 23:38] LABS: INR 1.6 (0.9-1.15); Partial Thromboplastin Time 26.7 sec (23.0-31.2)
[2020-09-10 23:40] LABS: Albumin 3.3 g/dL (3.4-5.0); Calcium 8.4 mg/dL (8.5-10.1); Magnesium 3.4 mg/dL (1.6-2.6)
[2020-09-10 23:48] LABS: BUN/Creatinine Ratio 18.1; Bilirubin, Total 3.2 mg/dL (0.2-1.0); Total Protein 6.2 g/dL (6.4-8.2)
[2020-09-10 23:50] LABS: Potassium 6.4 mmol/L (3.5-5.1)
[2020-09-11] MEDS ORDERED: SODIUM BICARBONATE 8.4% INJ 50ML SYRINGE IV ONE (00:15)
[2020-09-11] MEDS ORDERED: ALBUTEROL SULF 2.5 MG/0.5ML(0.5%) NEB SOLN NEB ONE (00:15)
[2020-09-11] MEDS ORDERED: SODIUM ZIRCONIUM CYCL 10 GM PAK PO ONE (00:15)
[2020-09-11] MEDS ORDERED: DEXTROSE (50%) 50ML SYRG IV ONE (00:15)
[2020-09-11] MEDS ORDERED: FUROSEMIDE 20 MG/2 ML VIAL IV ONE (00:15)
[2020-09-11] MEDS ORDERED: InsuLIN REG 1unit/0.01ml Soln (100units/ml) IV ONE (00:15)
[2020-09-11] MEDS ORDERED: CALCIUM GLUC 4.65meq/50ml D5AE 50 ML IV ONE (00:15)
[2020-09-11 01:58] LABS: Urine Amorphous Crystal FEW /hpf (None Seen); Urine Bacteria FEW /hpf (None Seen); Urine Blood 3+ /uL (Negative); Urine Hyaline Cast MOD /lpf (0 - 2); Urine Specific Gravity 1.018 (1.001-1.035); Urine WBC 6 /hpf (0 - 3)
[2020-09-11] MEDS ORDERED: SODIUM CHLORIDE 0.9% 500 ML IV ONE (04:30)
[2020-09-11] MEDS ORDERED: NITROGLYCERIN 0.4 MG SL TAB SL PRN (08:00)
[2020-09-11] MEDS ORDERED: MORPHINE SULF INJ 2 MG/ML SYRINGE 1ML IV PRN (08:00)
[2020-09-11] MEDS ORDERED: MORPHINE SULFATE 4 MG/ML SYR/VIAL IV PRN (08:00)
[2020-09-11] MEDS ORDERED: DEXTROSE (50%) 50ML SYRG IV PRN (08:00)
[2020-09-11] MEDS ORDERED: DOCUSATE SOD 100 MG CAP PO PRN (08:00)
[2020-09-11 08:33] LABS: Calcium 8.5 mg/dL (8.5-10.1); Potassium 5.3 mmol/L (3.5-5.1)
[2020-09-11 08:35] LABS: BUN/Creatinine Ratio 16.4
[2020-09-11 08:58] LABS: Cholesterol 73 mg/dL (< 200); HDL Cholesterol 28 mg/dL (40-59); LDL Cholesterol 45 mg/dL (< 100); Triglycerides 89 mg/dL (< 150)
[2020-09-11] MEDS ORDERED: ALLOPURINOL 300 MG TAB PO SCH (10:00)
[2020-09-11] MEDS ORDERED: ENOXAPARIN SOD 40 MG/0.4 ML SYRINGE SC SCH (10:00)
[2020-09-11] MEDS: DUTASTERIDE 0.5 MG PO SCH (10:00)
[2020-09-11] MEDS: TERAZOSIN HCL 5 MG CAP PO SCH (11:30)
[2020-09-11] MEDS: ZINC SULFATE 220mg CAP or TAB PO SCH (11:30)
[2020-09-11] MEDS: MULTIPLE VITAMIN TAB PO SCH (11:30)
[2020-09-11] MEDS: ASPirin-EC 81 mg tab PO SCH (11:30)
[2020-09-11] MEDS: CLOPIDOGREL BISULFATE 75 MG TAB PO SCH (11:31)
[2020-09-11] MEDS: ASCORBIC ACID 500 MG TAB PO SCH (11:31)
[2020-09-11] MEDS: FAMOTIDINE 20 MG TAB PO SCH (11:31)
[2020-09-11] MEDS: ACCU-CHEK COMFORT CURVE STRIP VI SCH ×3 (11:38→22:00)
[2020-09-11] MEDS: InsuLIN REG 1unit/0.01ml Soln (100units/ml) SC SCH ×2 (11:40→16:47)
[2020-09-11 12:00] VITALS: BP 103/57
[2020-09-11] MEDS: SODIUM CHLOR 0.9% PF (SALINE LOCK) 10ML VIAL/SYR IV SCH ×2 (13:10→22:00)
[2020-09-11] MEDS: FERROUS SULFATE 325 MG TAB PO SCH (13:53)
[2020-09-11 16:51] VITALS: BP 101/52
[2020-09-11] MEDS ORDERED: SODIUM CHLORIDE 0.9% 1,000 ML IV SCH (19:45)
[2020-09-11 19:47] LABS: Albumin 3.2 g/dL (3.4-5.0); Anion Gap 20 (5-15); Calcium 8.1 mg/dL (8.5-10.1); Carbon Dioxide 15 mmol/L (21-32); Chloride 102 mmol/L (98-107); Potassium 5.4 mmol/L (3.5-5.1); Sodium 137 mmol/L (136-145)
[2020-09-11 20:04] LABS: Alanine Aminotransferase 2292 U/L (16-61); Alkaline Phosphatase 221 U/L (45-117); Aspartate Aminotransferase 2110 U/L (15-37); BUN/Creatinine Ratio 17.4; Bilirubin, Total 2.4 mg/dL (0.2-1.0); GFR African American 10 mL/min; GFR Non-African American 8 mL/min; Total Protein 5.9 g/dL (6.4-8.2)
[2020-09-11 20:05] LABS: Glucose 146 mg/dL (74-106)
[2020-09-11 20:08] LABS: Blood Urea Nitrogen 117 mg/dL (7-18)
[2020-09-11] MEDS: SODIUM BICARB 50ML SYR 75 ML in SOD CHL 0.45% 1,000 ML IV SCH (20:15)
[2020-09-11 21:33] VITALS: BP 87/49
[2020-09-11 22:00] VITALS: BP 92/49
[2020-09-11] MEDS ORDERED: InsuLIN REG 1unit/0.01ml Soln (100units/ml) SC SCH (22:00)
[2020-09-11] MEDS ORDERED: LACTATED RINGER'S 1,000 ML IV ONE (23:30)
[2020-09-12] VITALS (14 sets, daily range): BP systolic 90–121; BP diastolic 34–65
[2020-09-12] MEDS: LACTATED RINGER'S 1,000 ML IV SCH ×2 (00:30→12:50)
[2020-09-12] MEDS: FERROUS SULFATE 325 MG TAB PO SCH ×3 (00:42→14:00)
[2020-09-12] MEDS: ASCORBIC ACID 500 MG TAB PO SCH ×2 (00:42→10:00)
[2020-09-12] MEDS: FAMOTIDINE 20 MG TAB PO SCH (00:42)
[2020-09-12] MEDS: ONDANSETRON HCL 4 MG/2 ML VIAL IV PRN ×2 (01:40→05:23)
[2020-09-12] MEDS: SODIUM CHLOR 0.9% PF (SALINE LOCK) 10ML VIAL/SYR IV SCH ×2 (05:24→14:00)
[2020-09-12] MEDS: ACCU-CHEK COMFORT CURVE STRIP VI SCH ×2 (05:24→11:30)
[2020-09-12] MEDS: InsuLIN REG 1unit/0.01ml Soln (100units/ml) SC SCH ×2 (05:38→11:30)
[2020-09-12 06:19] LABS: Basophils # (auto) 0 10 ^3/uL (0-0.2); Eosinophils # (auto) 0 10 ^3/uL (0-0.8); Eosinophils % (auto) 0.1 % (0.0-7.0); Hematocrit 35.6 % (41.0-53.0); Hemoglobin 11.6 g/dL (13.5-17.5); Lymphocytes # (auto) 0.3 10 ^3/uL (0.4-5.4); Lymphocytes % (auto) 2.9 % (10.0-50.0); Mean Corpuscular Hemoglobin 31.6 pg (28.0-32.0); Mean Corpuscular Hgb Conc. 32.6 g/dL (32.0-36.0); Mean Corpuscular Volume 97.1 fL (80.0-100.0); Monocytes # (auto) 0.9 10 ^3/uL (0-1.3); Monocytes % (auto) 7.8 % (0.0-12.0); Neutrophils # (auto) 9.9 10 ^3/uL (1.6-8.6); Neutrophils % (auto) 89.2 % (37.0-80.0); Nucleated Red Blood Cells % 1.1 %; Platelet Count (auto) 130 10^3/uL (140-450); Red Blood Cells 3.66 10^6/uL (4.5-5.90); White Blood Cell 11.1 10^3/uL (4.4-10.8)
[2020-09-12 06:38] LABS: Albumin 3.2 g/dL (3.4-5.0); Magnesium 3.5 mg/dL (1.6-2.6)
[2020-09-12 06:48] LABS: BUN/Creatinine Ratio 16.1; Bilirubin, Total 3.2 mg/dL (0.2-1.0); Total Protein 5.7 g/dL (6.4-8.2)
[2020-09-12 07:39] LABS: Phosphorus 9.7 mg/dL (2.5-4.90); Potassium 5.6 mmol/L (3.5-5.1)
[2020-09-12] MEDS ORDERED: SODIUM ZIRCONIUM CYCL 10 GM PAK PO ONE (08:00)
[2020-09-12 09:33] LABS: Hepatitis B Surface Antibody Negative
[2020-09-12 09:56] LABS: Hepatitis A Total Antibody Negative
[2020-09-12] MEDS ORDERED: DOXYCYCLINE 100 MG TAB/CAP PO SCH (10:00)
[2020-09-12] MEDS: DUTASTERIDE 0.5 MG PO SCH (10:00)
[2020-09-12] MEDS ORDERED: ALLOPURINOL 300 MG TAB PO SCH (10:00)
[2020-09-12] MEDS: CLOPIDOGREL BISULFATE 75 MG TAB PO SCH (10:00)
[2020-09-12] MEDS: ZINC SULFATE 220mg CAP or TAB PO SCH (10:00)
[2020-09-12] MEDS: MULTIPLE VITAMIN TAB PO SCH (10:00)
[2020-09-12] MEDS: TERAZOSIN HCL 5 MG CAP PO SCH (10:00)
[2020-09-12] MEDS ORDERED: FAMOTIDINE 20 MG TAB PO SCH (10:00)
[2020-09-12] MEDS: ASPirin-EC 81 mg tab PO SCH (10:00)
[2020-09-12] MEDS ORDERED: ENOXAPARIN SOD 30 MG/0.3 ML SYRINGE SC SCH (10:00)
[2020-09-12] MEDS: SODIUM BICARB 50ML SYR 75 ML in SOD CHL 0.45% 1,000 ML IV SCH (10:35)
[2020-09-12 11:42] LABS: Hepatitis A Ab IgM Negative; Hepatitis B Core IgM Negative; Hepatitis B Core Total AB Negative; Hepatitis B Surface Antigen Negative (Negative); Hepatitis C Antibody Negative (Negative)
== END 2020-09-12 19:50 | disposition hospice, home (50) | DRG 682 ==
LOC: EDBD 22:36 → ER 22:39 → TELE 22:40 → TELE-CENTR 09-11 11:43
PROVIDERS: ADMIT Nurse Practitioner Family; ATTEND Internal Medicine
DX: N17.9 Acute kidney failure, unspecified (principal); K72.00 Acute and subacute hepatic failure without coma; I50.23 Acute on chronic systolic (congestive) heart failure; J18.9 Pneumonia, unspecified organism; I21.4 Non-ST elevation (NSTEMI) myocardial infarction; E87.2 Acidosis; R18.8 Other ascites; I13.2 Hypertensive heart and chronic kidney disease with heart failure and with stage 5 chronic kidney disease, or end stage renal disease; J98.11 Atelectasis; N18.6 End stage renal disease; R33.9 Retention of urine, unspecified; E11.22 Type 2 diabetes mellitus with diabetic chronic kidney disease; E87.5 Hyperkalemia; E78.5 Hyperlipidemia, unspecified; I25.10 Atherosclerotic heart disease of native coronary artery without angina pectoris; D63.8 Anemia in other chronic diseases classified elsewhere; I08.3 Combined rheumatic disorders of mitral, aortic and tricuspid valves; I27.20 Pulmonary hypertension, unspecified; M10.9 Gout, unspecified; Z51.5 Encounter for palliative care; E66.9 Obesity, unspecified; E83.39 Other disorders of phosphorus metabolism; Z82.3 Family history of stroke; Z82.49 Family history of ischemic heart disease and other diseases of the circulatory system; Z79.82 Long term (current) use of aspirin; Z79.02 Long term (current) use of antithrombotics/antiplatelets; Z79.84 Long term (current) use of oral hypoglycemic drugs; Z83.3 Family history of diabetes mellitus; Z86.73 Personal history of transient ischemic attack (TIA), and cerebral infarction without residual deficits; I25.2 Old myocardial infarction; Z95.2 Presence of prosthetic heart valve; Z95.5 Presence of coronary angioplasty implant and graft; Z79.899 Other long term (current) drug therapy; Z83.6 Family history of other diseases of the respiratory system; Z68.28 Body mass index [BMI] 28.0-28.9, adult; Z80.9 Family history of malignant neoplasm, unspecified
CPT/HCPCS: 36415; 71045; 74176; 76604; 80048; 80053; 80061; 80074; 81001; 82728; 82962; 83036; 83516; 83605; 83735; 83880; 84100; 84484; 84550; 85025; 85610; 85730; 86225; 86235; 86704; 86706; 86708; 86803; 87081; 87340; 93005; 94644; G0378; J0610; J1815; J2405